=== PATIENT | female | born 1975 | race Caucasian/White ===

== ENCOUNTER 2018-10-09 07:47 | Emergency (ER) | payer OTHER ==
[~2018-10-09] VITALS: Ht 160 cm; Wt 68.0 kg
[2018-10-09] MEDS ORDERED: COZAAR 25 MG TA25 M1 PO (08:00)
[2018-10-09] MEDS ORDERED: CLEOCIN HCL150 MG PO (08:12)
[2018-10-09] MEDS ORDERED: NORCO 5-325 TA1 EACH PO (08:12)
[2018-10-09] MEDS ORDERED: KEFLEX500 M1 PO (08:12)
[2018-10-09 08:25] VITALS: BP 130/95
== END 2018-10-09 08:26 | disposition home or self-care (01) ==
LOC: M.ERS 07:47
DX: L03.011 Cellulitis of right finger (principal); I10 Essential (primary) hypertension; Z86.14 Personal history of Methicillin resistant Staphylococcus aureus infection; Z88.1 Allergy status to other antibiotic agents; Z88.2 Allergy status to sulfonamides